=== PATIENT | male | born 1975 | race African-American/Black ===

== ENCOUNTER → 2021-02-14 09:04 | Outpatient (BNVA) | payer OTHER, MEDICAID, SELFPAY | PROVIDERS: PCP Internal Medicine; Visit Provider Urology ==

== ENCOUNTER → 2021-05-17 09:28 | Outpatient (BNVA) | payer OTHER, MEDICAID, SELFPAY | PROVIDERS: PCP Internal Medicine; Visit Provider Urology ==

== ENCOUNTER 2023-10-28 08:41 | Outpatient (AMB) | payer OTHER, SELFPAY ==
--- NOTE | 2023-10-28 08:43 | A.OFFVIS_ITS ---
Intake Visit Reasons: follow up/ED Intake Note: Patient presents to the office today for a ED follow up. 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 They are a patient of Dr Vidal. - erectile dysfunction Yearly follow-up Using on demand. 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 He presents today for?continued evaluation and management of erectile dysfunction.? Symptoms have been present for/since?2014 - gradually progressive.? Current treatment includes?Viagra/sildenafil.? Treatment side effects include?started to develop headache ? At this time he experiences erections?01/18 are partial and adequate for vaginal penetration, that undergo rapid detumesence after penetration, HANSEL 12- 16 Mild-Moderate ED ?10/17 good response to Viagra.? Nocturnal erections?do occur.? 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 States gets enough sleep. Denies smoking or marijuana use..? Recent labs included?05/21 Baseline T 240 ?06/21 Stim test 50mg clomid daily T 344 FSH 7.8, LH 5.9.? Overall he is satisfied with the current management.? Therapeutic plan includes?maintaining current therapy PFSH Medical History (Reviewed 10/28/23 @ 08:44 by Deborah Centeno [facility]) Sleep disorder, shift work Hypogonadism in male Erectile disorder due to medical condition in male patient Review of Systems Const Denies chills and Denies fever(s) Card Reports no additional complaints and Denies syncope Resp Denies cough GI Denies abdominal pain and Denies heartburn Reports as per HPI and Denies change in libido Neuro Denies syncope Psych Denies change in libido Endo Denies change in libido Physical Exam Const General: cooperative, healthy appearing, comfortable and no acute distress Orientation/consciousness: patient oriented x3 HEENT Face and sinus: Yes normal facial exam Mouth: moist mucous membranes Neck Neck: Yes normal visual inspection, Yes full ROM and Yes trachea midline Chest Chest palpation & inspection: normal inspection of the chest Resp Effort & Inspection: normal respiratory effort, able to speak in complete sentences and no respiratory distress GI Inspection: Yes normal to inspection Back/Spine/Pelvis Cervical Spine: normal cervical lordosis Thoracic/Lumbar Spine: thoracic and lumbar spine normal to inspection Skin General skin exam: no rashes or lesions noted Neuro General: patient oriented x3, gait normal, tone normal and moves all extremities Extrem General: Yes normal to inspection and Yes capillary refill normal Assessment & Plan Assessment & Plan (1) Sleep disorder, shift work: Code(s): G47.26 - Circadian rhythm sleep disorder, shift work type Category: Medical (2) Hypogonadism in male: Code(s): E29.1 - Testicular hypofunction Category: Medical (3) Erectile disorder due to medical condition in male patient: Code(s): N52.1 - Erectile dysfunction due to diseases classified elsewhere Category: Medical Plan Twelve month follow-up lab Orders: Orders Prostate Specific Antigen 364 Days N52.1 - Erectile dysfunction due to diseases classified elsewhere Medications: New tadalafil daily 5 mg PO DAILY 90 days 90 tabs 1RF sexual activity N52.01 - Erectile dysfunction due to arterial insufficiency tadalafil On demand medication take 60 minutes before intended activity 20 mg PO ONCE 30 days PRN 30 tabs 0RF sexual activity N52.1 - Erectile dysfunction due to diseases classified elsewhere Patient Instructions: Imaging studies, laboratory and physical exam results were discussed and reviewed in detail. No major barriers to patient understanding were identified. An opportunity to ask questions regarding the treatment plan was provided. All questions were answered. The patient expressed understanding and agreement with the above treatment plan. The patient is aware they should contact our office by phone for worsening of their current condition or the appearance of new urologic symptoms. Compliance is encouraged with any medications and followup testing that is ordered. It is a privilege to participate in the urologic care of your patient. If you have any questions or concerns regarding treatment for the above conditions, or other urologic issues, please do not hesitate to contact me. The office telephone contact is [phone]. This note is constructed using voice recognition software. While every effort has been made to ensure accuracy field instructor errors may have been included. Yours sincerely, Dr Toñito Reynolds MD, RG [facility] - Urology Providers of Expert, Compassionate Care for the Genitourinary System Coding Level of Care Code Est Pt Level 4 (19481) Diagnoses Sleep disorder, shift work G47.26 Hypogonadism in male E29.1 Erectile disorder due to medical condition in male patient N52.1
== END 2023-10-28 09:05 | disposition home or self-care (01) ==
PROVIDERS: PCP Internal Medicine; Visit Provider Urology
DX: E29.1 Testicular hypofunction (principal); N52.1 Erectile dysfunction due to diseases classified elsewhere; G47.26 Circadian rhythm sleep disorder, shift work type
CPT/HCPCS: 99214

== ENCOUNTER → 2023-10-28 08:41 | Outpatient (BNVA) | payer OTHER, SELFPAY | PROVIDERS: PCP Internal Medicine; Visit Provider Urology | DX: G47.26 Circadian rhythm sleep disorder, shift work type (principal); E29.1 Testicular hypofunction; N52.1 Erectile dysfunction due to diseases classified elsewhere | CPT/HCPCS: 99212 ==

== ENCOUNTER 2025-03-13 10:24 | Outpatient (REF) | payer SELFPAY ==
--- OUTSIDE RECORDS SUMMARY | 2025-03-13 12:11 | XMS_ITS | Clinical Summary ---
Author Organization [facility] Address [address] [place] [address] Phone Care Team Providers Care Radio Communications Superintendent Name Role Phone Donna Ely MD Primary Care Provider [phone] Allergies No known active allergies Medications dexAMETHasone (DECADRON) 4 mg tablet Take 1 tablet (4 mg total) by mouth 2 (two) times a day for 5 days. 10 each 03/31/2024 Active Encounters Date Type Department Care Team Description 12/14/2024 7:15 AM EDT - 12/14/2024 11:59 PM EDT Hospital Encounter [facility] [address] [place] [phone] Strain of adductor muscle, fascia and tendon of left thigh, initial encounter Discharge Disposition: Home or Self Care 12/14/2024 7:15 AM EDT - 12/14/2024 11:59 PM EDT Hospital Encounter [address] [phone] Radiculopathy, lumbar region Discharge Disposition: Home or Self Care from Last 3 Months Surgical History Surgery Date Site/Laterality Comments COLONOSCOPY 09/28/2015 PROCEDURE: HISTORICAL COLONOSCOPY; COMMENT: Diminutive tubular adenoma x1. COLONOSCOPY 01/02/2020 PROCEDURE: HISTORICAL COLONOSCOPY; COMMENT: No polyps, next colonoscopy in 5 years. APPENDECTOMY PROCEDURE: NM APPENDECTOMY Medical History Medical History Date Comments Family history of colon cancer D X:Family history of colon cancer Erectile dysfunction 2017 DX:Erectile dysfunction LVH (left ventricular hypertrophy) DX:LVH (left ventricular hypertrophy); COMMENT: see echo 2017; monitor BP Hypogonadism in male 06/23/2017 DX:Hypogona dism in male; COMMENT: Sees urology Fatty liver 12/14/2018 DX:Fatty liver Family History Medical History Relation Name Comments Colon cancer Brother 1 colectomy Colon cancer Brother 2 colectomy Prostate cancer Father Hypertension Mother Breast cancer Neg Hx Relation Name Status Comments Brother 1 Brother 2 Father Mother Social History Tobacco Use Types Packs/Day Years Used Date Smoking Tobacco: Never Smokeless Tobacco: Never Alcohol Use Standard Drinks/Week Comments Yes 0 (1 standard drink = 0.6 oz pur e alcohol) Sex and Gender Information Value Date Recorded Sex Assigned at Not on file Legal Sex Male 8:25 PM EST Gender Identity Not on file Sexual Orientation Not on file Obstetrics History Last Filed Vital Signs Vital Sign Reading Time Taken Comments Blood Pressure 128/78 11/24/2024 2:56 PM EDT Pulse 107 11/24/2024 2:56 PM EDT Temperature 36.3 C (97.3 F) 11/24/2024 2:56 PM EDT Respiratory Rate 18 11/24/2024 2:56 PM EDT Oxygen Saturation 95% 11/24/2024 2:56 PM EDT Inhaled Oxygen Concentration - - Weight 96.2 kg (212 lb) 11/24/2024 2:56 PM EDT Height 195.6 cm (6' 5 ) 11/24/2024 2:56 PM EDT Body Mass Index 25.14 11/24/2024 2:56 PM EDT Plan of Treatment Health Maintenance Due Date Last Done Comments Colorectal Cancer Screening: Colonoscopy 1975 Hepatitis A Vaccines (1 of 2 - Risk 2-dose series) 1994 Hepatitis B Vaccines (1 of 3 - 19+ 3-dose series) 1994 Cholesterol Screening (Lipid Panel) 04/12/2022 HIV Screening 04/12/2022 Hepatitis C Screening 04/12/2022 Social Influencers of Health Screening 04/12/2022 Depression Screening 05/04/2024 COVID-19 Vaccine (3 - 2024-2 6 season) 2025 07/04/2020, 06/06/2020 Influenza Vaccine (#1) 2025 DTaP,Tdap,and Td Vaccines (2 - Td or Tdap) 08/09/2025 08/10/2015 RSV Immunization Adult Patients (1 - 1-dose 75+ series) 2050 HIB Vaccines Aged Out No longer eligi ble based on patient's age to complete this topic HPV Vaccines Aged Out No longer eligi ble based on patient's age to complete this topic IPV Vaccines Aged Out No longer eligi ble based on patient's age to complete this topic MMR Vaccines Aged Out No longer eligi ble based on patient's age to complete this topic Meningococcal ACWY Vaccine Aged Out N o longer eligible based on patient's age to complete this topic Meningococcal B Vaccine Aged Out No l onger eligible based on patient's age to complete this topic Pneumococcal Vaccine: Pediatrics (0 to 5 Years) and At-Risk Patients (6 to 49 Years) Aged Out No longer eligible b ased on patient's age to complete this topic RSV Immunization Patients Under 20 months Aged Out No longer eligible b ased on patient's age to complete this topic Varicella Vaccines Aged Out No longer eligible based on patient's age to complete this topic Procedures Procedure Name Priority Date/Time Associated Diagnosis Comments MR LUMBAR SPINE WO CONTRAST Routine 12/14/2024 8:37 AM EDT Radiculopathy, lumbar region MR HIP WO CONTRAST LEFT Routine 12/14/2024 8:31 AM EDT Strain of adductor muscle, fascia and tendon of left thigh, initial encounter from Last 3 Months Results * MR Lumbar Spine wo Contrast (12/14/2024 8:37 AM EDT) Anatomical Region Laterality Modality L-spine, Spine Magnetic Resonan ce 12/14/2024 11:0 5 AM EDT Impressions 12/14/2024 11:30 AM EDT 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 Extruded disc material results in mass effect upon the descending left L5 nerve in the subarticular zone. Correlate for left L5 radiculopathy. -------- FINAL REPORT -------- Dictated By: JESSICA CLEMENTE Dictated Date: 12/14/2024 11:05 ET Assigned Physician: JESSICA CLEMENTE Reviewed and Electronically Signed By: JESSICA CLEMENTE Signed Date: 12/14/2024 11:30 ET Workstation ID: [id number] Transcribed By: Self Edit Transcribed Date: 12/14/2024 11:05 ET Narrative 12/14/2024 11:30 AM EDT PROCEDURE: Lumbar spine MRI INDICATION: Muscle strain TECHNIQUE: Multiplanar, multisequence MRI of the Lumbar spine Without contrast. COMPARISON: No priors available. FINDINGS: Lumbar lordosis is maintained. No fracture or suspicious marrow replacing lesion. Degenerative loss of normal disc height and signal at L4-5 and L5-S1. Lower lumbar predominant degenerative facet arthritis. Conus medullaris is normal and terminates at L2. No epidural collection or mass is seen within the spinal canal. Paraspinal muscles are within normal limits. Visualized intra-abdominal and pelvic structures are normal. Findings by level: L1-2: No focal disc protrusion, foraminal stenosis, or spinal canal stenosis. L2-3: No focal disc protrusion, foraminal stenosis, or spinal canal stenosis. L3-4: No focal disc protrusion, foraminal stenosis, or spinal canal stenosis. L4-5: Large left paracentral extrusion extends caudally by approximately 18 mm posterior to L5. There is mild spinal canal stenosis with effacement of the left subarticular zone. Extruded disc material results in mass effect upon the descending left L5 nerve in the subarticular zone. Diffuse disc bulge and bilateral facet arthropathy resulting in moderate left and no right foraminal stenosis. L5-S1: Diffuse disc bulge and bilateral facet arthropathy. Effacement of the subarticular zones bilaterally without spinal canal stenosis. Moderate foraminal stenosis bilaterally. Procedure Note Jessica Clemente MD - 12/14/2024 PROCEDURE: Lumbar spine MRI INDICATION: Muscle strain TECHNIQUE: Multiplanar, multisequence MRI of the Lumbar spine Withoutcontrast. COMPARISON: No priors available. FINDINGS: Lumbar lordosis is maintained. No fracture or suspicious marrow replacing lesion. Degenerative loss of normal disc height and signal at L4-5 and L5-S1. Lower lumbar predominant degenerative facet arthritis. Conus medullaris is normal and terminates at L2. No epidural collectionor mass is seen within the spinal canal. Paraspinal muscles are within normal limits. Visualized intra-abdominaland pelvic structures are normal. Findings by level: L1-2: No focal disc protrusion, foraminal stenosis, or spinal canalstenosis. L2-3: No focal disc protrusion, foraminal stenosis, or spinal canalstenosis. L3-4: No focal disc protrusion, foraminal stenosis, or spinal canalstenosis. L4-5: Large left paracentral extrusion extends caudally by [id number] mm posterior to L5. There is mild spinal canal stenosis witheffacement of the left subarticular zone. Extruded disc material resultsin mass effect upon the descending left L5 nerve in the subarticular zone.Diffuse disc bulge and bilateral facet arthropathy resulting in moderateleft and no right foraminal stenosis. L5-S1: Diffuse disc bulge and bilateral facet arthropathy. Effacement ofthe subarticular zones bilaterally without spinal canal stenosis.Moderate foraminal stenosis bilaterally. IMPRESSION: Large left paracentral extrusion at L4-5 resulting in mild spinal canalstenosis with effacement of the left subarticular zone. Extruded discmaterial results in mass effect upon the descending left L5 nerve in thesubarticular zone. Correlate for left L5 radiculopathy. -------- FINAL REPORT -------- Dictated By: JESSICA CLEMENTE Dictated Date: 12/14/2024 11:05 ET Assigned Physician: JESSICA CLEMENTE Reviewed and Electronically Signed By: JESSICA CLEMENTE Signed Date: 12/14/2024 11:30 ET Workstation ID: [id number] Transcribed By: Self Edit Transcribed Date: 12/14/2024 11:05 ET us Mark Banegas MD IMG MRI PROCEDURES Final Res ult * MR Hip wo Contrast Left (12/14/2024 8:31 AM EDT) Anatomical Region Laterality Modality Lower Extremities, Hip Left Magnetic Resonance 12/14/2024 11:3 0 AM EDT Impressions 12/14/2024 11:32 AM EDT Normal left hip MRI without contrast -------- FINAL REPORT -------- Dictated By: JESSICA CLEMENTE Dictated Date: 12/14/2024 11:30 ET Assigned Physician: JESSICA CLEMENTE Reviewed and Electronically Signed By: JESSICA CLEMENTE Signed Date: 12/14/2024 11:32 ET Workstation ID: [id number] Transcribed By: Self Edit Transcribed Date: 12/14/2024 11:30 ET Narrative 12/14/2024 11:32 AM EDT PROCEDURE: Left hip MRI INDICATION: Muscle strain TECHNIQUE: Multiplanar, multisequence MRI of the left hip Without contrast. COMPARISON: No priors available. FINDINGS: No fracture or suspicious marrow replacing lesion. No evidence of femoral head osteonecrosis. Articular cartilage is preserved. No left hip effusion. The labrum is intact. The rectus femoris and iliopsoas tendons are intact. Gluteus medius minimus and medius tendons are intact. Hamstring tendons are intact. Muscle bulk is preserved. Sciatic and femoral nerves are normal. Large field view images demonstrate normal sacroiliac and right hip joints. Visualized intra-abdominal and pelvic structures are unremarkable. No hernia or soft tissue mass seen in the left inguinal region. Procedure Note Jessica Clemente MD - 12/14/2024 PROCEDURE: Left hip MRI INDICATION: Muscle strain TECHNIQUE: Multiplanar, multisequence MRI of the left hip Withoutcontrast. COMPARISON: No priors available. FINDINGS: No fracture or suspicious marrow replacing lesion. No evidence of femoralhead osteonecrosis. Articular cartilage is preserved. No left hip effusion. The labrum is intact. The rectus femoris and iliopsoas tendons are intact. Gluteus medius minimus and medius tendons are intact. Hamstring tendons are intact. Muscle bulk is preserved. Sciatic and femoral nerves are normal. Large field view images demonstrate normal sacroiliac and right hipjoints. Visualized intra-abdominal and pelvic structures areunremarkable. No hernia or soft tissue mass seen in the left inguinal region. IMPRESSION: Normal left hip MRI without contrast -------- FINAL REPORT -------- Dictated By: JESSICA CLEMENTE Dictated Date: 12/14/2024 11:30 ET Assigned Physician: JESSICA CLEMENTE Reviewed and Electronically Signed By: JESSICA CLEMENTE Signed Date: 12/14/2024 11:32 ET Workstation ID: [id number] Transcribed By: Self Edit Transcribed Date: 12/14/2024 11:30 ET us Mark Banegas MD IMG MRI PROCEDURES Final Res ult from Last 3 Months Insurance AUT[employer] GENERIC Care Teams Radio Communications Superintendent Relationship Specialty Start Date End Date Donna Ely MD [facility] [place] [address] PCP - General 03/12/21
--- OUTSIDE RECORDS SUMMARY | 2025-03-13 12:11 | XMS_ITS | Data Portability ---
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 Primary Care Provi aditya Assessment No assessment recorded. Plan of Treatment Reminders Order Date Submit Date Provider Last Modified By Organization Details Last Modified Time Details Appointments None recorded. Lab rapid flu (A+B) 2023 024 [email or web address] [facility] [address], [address] [place], [address], 4 10:34:00 SARS CoV 2 (COVID-19) Ag, QL, IA, upper respiratory specimen 2023 024 [email or web address] [facility] [address], [address] [place], [address], 4 10:33:59 Referral None recorded. Procedures None recorded. Surgeries None recorded. Imaging None recorded. Medication Orders Allergy Relief (fluticason e) 50 mcg/actuati on nasal spray,suspe nsion 2023 024 [id number], [address], [place], [id number], 4 10:33:37 Patient TargetsNo targets recorded. Patient Instructions Encounter Date Encounter Id Patient Instructions Last Modified By Organization Details Last Modified Time 05/14/2023 [id number] coronavirus (covid-19): care instructions [email or web address] Not available 05/14/2023 10:34:11 Sinusitis is an infection of the lining of the sinus cavities in your head. Sinusitis often follows a cold. It causes pain and pressure in your head and face. In most cases, sinusitis gets better on its own in 1 to 2 weeks. But some mild symptoms may last for several weeks. Sometimes antibiotics are needed. if you are having problems. It's also a good idea to know your test results and keep a list of the medicines you take. How can you care for yourself at home? Take an njqd-puj-tbguvsa pain medicine. Avoid Ibuprofen, Aleve and Aspirin if . If the doctor prescribed antibiotics, take them as directed. Do not stop taking them just because you feel better. You need to take the full course of antibiotics. Be careful when taking ggdz-ulm-ovddezp cold or influenza (flu) medicines and Tylenol at the same time. Many of these medicines have acetaminophen, which is Tylenol. Read the labels to make sure that you are not taking more than the recommended dose. Too much acetaminophen (Tylenol) can be harmful. Breathe warm, moist air from a steamy shower, a hot bath, or a sink filled with hot water. Avoid cold, dry air. Using a humidifier in your home may help. Follow the directions for cleaning the machine. Use saline (saltwater) nasal washes. This can help keep your nasal passages open and wash out mucus and bacteria. You can buy saline nose drops at a grocery store or drugstore. Or you can make your own at home by adding 1 teaspoon (5 millilitres) of salt and 1 teaspoon (5 millilitres) of baking soda to 2 cups (500 mL) of distilled water. If you make your own, fill a bulb syringe with the solution, insert the tip into your nostril, and squeeze gently. Blow your nose. Put a hot, wet towel or a warm gel pack on your face 3 or 4 times a day for 5 to 10 minutes each time. Try a decongestant nasal spray like oxymetazoline (Drixoral). Do not use it for more than 3 days in a row. Using it for more than 3 days can make your congestion worse. Not available 05/14/2023 10:31:53 If you test positive for COVID-19, stay home for at least 5 days and isolate from others in your home. You are likely most infectious during these first 5 days. Wear a high-quality mask if you must be around others at home and in public. Do not go places where you are unable to wear a mask. For travel guidance, see CDC s Travel webpage. Do not travel. Stay home and separate from others as much as possible. Use a separate bathroom, if possible. Take steps to improve ventilation at home, if possible. Don t share personal household items, like cups, towels, and utensils. Monitor your symptoms. If you have an emergency warning sign (like trouble breathing), seek emergency medical care immediately. If you had symptoms and: Your symptoms are improving You may end isolation after day 5 if: You are fever-free for 24 hours (without the use of fever-reducing medication). Your symptoms are not improving Continue to isolate until: You are fever-free for 24 hours (without the use of fever-reducing medication). Your symptoms are improving. Regardless of when you end isolation Until at least day 11: Avoid being around people who are more likely to get very sick from COVID-19. Remember to wear a high-quality mask when indoors around others at home and in public. Do not go places where you are unable to wear a mask until you are able to discontinue masking (see below). For travel guidance, see CDC s Travel webpage. Not available 05/14/2023 10:31:33 Reason for Referral None Reported. Results Created Date Observation Date Name Description Value Unit Range Abnormal Flag Note LastModifiedBy Organization Detail LastModifiedTime 05/14/1905/14/2023 rapid flu (A+B) Unknown Analyte negati ve Not Available [address] [place], [address], 05/14/2023 10:10:41 05/14/19 24 05/14/2023 rapid flu (A+B) Unknown Analyte negati ve Not Available [address] [place], [address], 05/14/2023 10:10:41 05/14/19 24 05/14/2023 rapid flu (A+B) Unknown Analyte yes Not Available [address] [place] [address] [address] [place], [address], 05/14/2023 10:10:41 05/14/19 24 05/14/2023 SARS CoV 2 (COVI D-19) Ag, QL, IA, upper respi rator y speci men Unknown Analyte negati ve Not Available [facility] [address] [place], [address], 05/14/2023 10:10:24 05/14/19 24 05/14/2023 SARS CoV 2 (COVI D-19) Ag, QL, IA, upper respi rator y speci men Unknown Analyte yes Not Available [address] [place] [address] [address] [place], [address], 05/14/2023 10:10:24 Result Notes None recorded. Problems No Known Problems Procedures Surgical History Date Name Laterality Status Provider Name and Address Organization Details Recorded Time OC-UDS Send Out Template DOT completed Tanesha JACQUSE - [facility] 07/21/2022 14:59:49 Imaging Results None recorded. Procedure Notes None recorded. Medical Equipment None Reported. Allergies No known drug allergies Medications Name Sig Start Date Stop Date Status Note LastModified by Organization Details LastModified Time doxycycline monohydrate 100 mg tablet TAKE 1 TABLET BY MOUTH TWICE DAILY FOR 10 DAYS active Not Available Not Available No t Available doxycycline hyclate 100 mg tablet TAKE ONE CAPSULE BY MOUTH TWICE A DAY FOR 14 DAYS active Not Available Not Available No t Available tadalafil 10 mg tablet TAKE ONE TABLET BY MOUTH EVERY DAY FOR SEXUAL ACTIVITY active Not Available Not Available No t Available Allergy Relief (fluticasone ) 50 mcg/actuatio n nasal spray,suspen dasha [place] 1 spray every day by intranasal route. 2023 active Not Available Not Available Not Avai lable Vitals Date Recorded Body height Body mass index (BMI) Body weight Pain severity - 0-10 verbal numeric rating [Score] - Reported Body temperature Oxygen saturation Oxygen saturation in Arterial blood by Pulse oximetry Heart rate Respiratory rate Systolic And Diastolic Provider Name and Address Organization Details Last Updated DateTime 4 198.12 cm 37 kg/m2 389649. 56 g 6 98.3 [degF] 96 % 96 % 95 /min 17 /min 120/74 mm[Hg] Tasneem Montaño PA - [facility] 4 10:14:18 Social History Question Answer Notes LastModified by Leveler Details LastModified Time Tobacco Smoking Status Never Smoker Tasneem panchal PA - [facility] 05/14/2023 10:10:06 Have You Had A Flu Shot This Season? No Information not available 05/14/2023 Have You Had Direct Contact, Or Contact During Intimacy, With Monkeypox Rash, Scabs, Or Body Fluids From A Person With Monkeypox? No Information not available 05/14/2023 What Was The Date Of Your Most Recent Tobacco Screening? 05/14/2023 Information not available 05/14/2023 Have You Recently Traveled Abroad? No Information not available 05/14/2023 Sex: Unknown Functional Status Question Answer Note LastModified by Leveler Details LastModified Time Do you use any illicit or recreational drugs? No Information not available 05/14/2023 Do you or have you ever used any other forms of tobacco or nicotine? No Information not available 05/14/2023 What is your level of alcohol consumption? Occasional Information not available 05/14/2023 Mental Status None recorded. Family History Nothing Reported. Medical History No medical history recorded. Immunizations Vaccine Type Date Status Note Provider Nam e and Address Organization Details Recorded Time Tdap 08/10/2015 completed Tasneem Dyeella abdulkadir PA - [facility] 05/14/2023 10:09:36 Past Encounters Encounter ID Performer Location Encounter Start Date Encounter Closed Date Diagnosis/Indication Diagnosis SNOMED-CT Code Diagnosis ICD10 Code Diagnosis IMO Codes Diagnosis Note [id number] [address] [facility] [address] 11/24/2021 08:06:41 11/24/2021 08:39:13 [id number] [address] [facility] [place], [place] [address] 12/21/2019 08:38:27 12/21/2019 09:24:39 [id number] [address] [facility], [place] [address] 12/31/2019 08:50:25 12/31/2019 09:11:45 [id number] [address] [facility], [place] [address] 01/20/2022 17:01:24 01/20/2022 18:44:20 [id number] Zacarias Santo, [employer] [address] [place] [address] 07/21/2022 14:19:53 07/21/2022 15:00:30 History and physical examination, occupation 043967852 Z02.1 [id number] Zacarias Gal [employer] [address] [place] [address] 05/14/2023 09:36:40 05/14/2023 10:50:04 Exposure to SARS-CoV-2 998350863 Z20.822 Acute sinusitis 09122892 J01.90 Health Concerns Section Related Observation LastModified by Organization Detai ls LastModified Time None Recorded Concern Status LastModified by Organization Details LastModified Time None Recorded Advance Directives Directive None Recorded Payers Insurance Date Sequence Insurance Name Policy Number Policy Martínez Covered Member ID Martínez Member ID Guarantor Name 08/12/2023 2 [place] [employer] Guy Dietrich [id number] Guy Dietrich 04/02/2022 [facility] [place] [id number] [facility] Guy Dietrich 07/21/2022 [facility] [place] [facility] Guy Dietrich 08/12/2023 1 [facility] - [facility] (MEDICAID REPLACEMENT - HMO) [place] Guy Dietrich [id number] Guy Dietrich Notes Date Note Type Note Provider Name and Address Organization Details Recorded Time 4 text/html Sinus Complaints UCReported by PatientHPIFor location, patient reportssinus pain,facial pain, andsinus pressure. For associated symptoms, patient reportsdifficulty breathing,post nasal drip,nasal passage blockage __, andcoughbut reportsno fever,no nausea or vomiting,no sore throat,no ear fullness,no nasal itching,no eye itching, andno dizziness. For quality, patient reportsworseningbut reportsminimal discomfortandclear. For context, patient reportsworse with environmental exposurebut reportsno recent upper respiratory infection,no recent sick contacts, andnot worse with seasonal allergen exposure. For onset/timing, patient reportsworse in amandworse in pm. For duration, patient reportsfrequent. For severity, patient reportsmoderate. For risk factors, patient reportsno current smoking or tobacco useandno history of nasal trauma. For alleviating factors, patient reportsoral steroids. For aggravating factors, patient reportsworse during an upper respiratory infection (a cold)andworse with excess fatigue. For prior treatment, patient reportsoral decongestant. COVID-19 SymptomsReported by Patient Shortness of BreathReported by Patient Zacarias Santo NP [address] [place], [address], [place] - [facility] 05/14/2023 10:36:50
--- OUTSIDE RECORDS SUMMARY | 2025-03-13 12:11 | XMS_ITS ---
Author Name [facility] Organization Unknown Care Team Organization Name Specialty Phone Email Start Date End Da te [employer] 07/13/2024 0 10/05/2024 [facility] 09/08/20222023 [facility] Lyubov Eason [facility] 07/09/2022 12/21/19 [facility] Annette Wang [facility] 03/11/2022 12/21/2023
[2025-03-13 13:41] LABS: Prostate Specific Antigen 0.43 ng/mL (<0.05-4.0)
== END 2025-03-13 10:25 | disposition home or self-care (01) ==
LOC: HO.10HDL 10:24
PROVIDERS: Visit Provider Urology
DX: Z12.5 Encounter for screening for malignant neoplasm of prostate (principal); N52.1 Erectile dysfunction due to diseases classified elsewhere
CPT/HCPCS: 36415; 84153